=== PATIENT | female | born 1975 | race Caucasian/White ===

== ENCOUNTER 2018-12-14 04:26 | Emergency (ER) | payer MEDICAID ==
--- NOTE | 2018-12-14 04:50 | EDM.PDOC ---
ED HPI GENERAL MEDICAL PROBLEM - General Chief Complaint: Lower Extremity Injury/Pain Stated Complaint: FOOT INJURY Time Seen by Provider: 12/14/18 04:39 Source of Information: Reports: Patient, RN Notes Reviewed History Limitations: Reports: No Limitations - History of Present Illness INITIAL COMMENTS - FREE TEXT/NARRATIVE: The patient states that she fell down some stairs around midnight, injuring her right foot. She states that she landed on the foot wrong. She is otherwise uninjured. The patient's PCP is Dr. Katherine Butt. Right Foot Pain Score (Numeric/FACES): 7 - Related Data Allergies Allergy/AdvReac Type Severity Reaction Status Date / Time No Known Allergies Allergy Verified 12/14/18 04:35 Home Meds: Home Meds . [No Known Home Meds] 12/14/18 [History] Past Medical History Endocrine/Metabolic History: Reports: Obesity/BMI 30+ - Past Surgical History HEENT Surgical History: Reports: Oral Surgery (2 wisdom teeth extracted), Tonsillectomy Female Surgical History: Reports: Hysterectomy (partial), Other (See Below) ( Bladder suspension) Social & Family History - Family History Family Medical History: Noncontributory - Tobacco Use Smoking Status *Q: Never Smoker - Caffeine Use Caffeine Use: Reports: Coffee - Alcohol Use Alcohol Use History: No - Recreational Drug Use Recreational Drug Use: No - Living Situation & Occupation Living situation: Reports: Single, with Family (3 kids) Occupation: Unemployed Review of Systems - Review of Systems Review Of Systems: ROS reveals no pertinent complaints other than HPI. ED EXAM, GENERAL - Physical Exam Exam: See Below Exam Limited By: No Limitations General Appearance: Alert, WD/WN, No Apparent Distress Extremities: Other (No visible abnormality to the right foot, such as swelling, erythema, ecchymosis, or abrasion. The patient reports tenderness to the posterior foot at the base of the third and fourth MTPs, as well as to the mid- sole. Strong dorsalis pedis and posterior tibialis pulses.) Course - Vital Signs Last Recorded V/S: Last Vital Signs Temp 36.6 C 12/14/18 04:33 Pulse 93 12/14/18 04:33 Resp 18 12/14/18 04:33 BP 145/99 H 12/14/18 04:33 Pulse Ox 99 12/14/18 04:33 - Orders/Labs/Meds Meds: Medications Discontinued Medications Generic Name Dose Route Start Last Admin Trade Name Vernell PRN Reason Stop Dose Admin Ibuprofen 600 mg 12/14/18 05:40 12/14/18 05:45 Motrin PO 12/14/18 05:41 600 mg ONETIME ONE Administration - Re-Assessments/Exams Free Text/Narrative Re-Assessment/Exam: 12/14/18 06:38 4-view radiographs of the right foot appear to be normal. No fractures or dislocations identified. Formal read per the Radiologist pending. Departure - Departure Time of Disposition: 06:38 Disposition: Home, Self-Care 01 Condition: Good Clinical Impression: Right foot strain - Discharge Information *PRESCRIPTION DRUG MONITORING PROGRAM REVIEWED*: Not Applicable *COPY OF PRESCRIPTION DRUG MONITORING REPORT IN PATIENT MAGALIS: Not Applicable Instructions: Foot Sprain Referrals: Katherine Butt MD [Ordering Only Provider] - Forms: ED Department Discharge Additional Instructions: You were seen in the emergency room after falling down stairs and injuring your right foot. Workup in the ER included x-rays of your right foot, which returned normal. No broken bones or dislocations were seen. Based on your history, physical exam, and ER x-rays, you have most likely strained your right foot. We recommend that you take [id number] ibuprofen, 2-3 tablets (400-600 mg) every 8 hours, with food, as needed for discomfort. Ice and elevate your right foot is much as possible for the next couple of days. Wear soft-soled shoes whenever ambulating. Follow-up with your PCP, Dr. Katherine Butt, as needed. If any other problems, please do not hesitate to return to the ER.
[2018-12-14] MEDS ORDERED: Ibuprofen 600 MG Tab PO ONE (05:40)
--- NOTE | 2018-12-14 14:55 | CR ---
Right foot: Four views of the right foot were obtained. Comparison: No previous foot exam. Small plantar spur is seen. Calcification is noted within the distal Achilles tendon at the attachment to the calcaneus. No acute fracture, dislocation or other bony abnormality is seen. Impression: 1. Incidental calcaneal spurs and Achilles calcification. 2. Nothing acute is definitely appreciated on right foot exam. Diagnostic code #2
== END 2018-12-14 06:47 | disposition home or self-care (01) ==
LOC: JD.ED 04:26
DX: S96.911A Strain of unspecified muscle and tendon at ankle and foot level, right foot, initial encounter (principal); W10.9XXA Fall (on) (from) unspecified stairs and steps, initial encounter
CPT/HCPCS: 73630; 99283; A9270

== ENCOUNTER 2021-02-28 18:25 | Emergency (ER) | payer SELFPAY ==
[2021-02-28] MEDS ORDERED: Lidocaine 1% 10 ML MDV INJECT ONE (18:39)
--- NOTE | 2021-02-28 19:23 | EDM.PDOC ---
ED HPI GENERAL MEDICAL PROBLEM - General Chief Complaint: Laceration Stated Complaint: LEFT FINGER LAC Time Seen by Provider: 02/28/21 18:39 Source of Information: Reports: Patient History Limitations: Reports: No Limitations - History of Present Illness INITIAL COMMENTS - FREE TEXT/NARRATIVE: 38-year-old female presents emergency department today with complaints of a laceration to her left index finger. Patient states that just prior to arrival she was cutting some meat when she got distracted with one of her children and cut the tip of her left index finger. 2 and half centimeter laceration is noted to the pad. Bleeding is controlled. Left Hand Pain Score (Numeric/FACES): 4 - Related Data Allergies Allergy/AdvReac Type Severity Reaction Status Date / Time No Known Allergies Allergy Verified 02/28/21 18:36 Home Meds: Home Meds . [No Known Home Meds] 12/14/18 [History] Past Medical History Cardiovascular History: Reports: Arrhythmia Respiratory History: Reports: PE Gastrointestinal History: Reports: Inflammatory Bowel Disease Endocrine/Metabolic History: Reports: Obesity/BMI 30+ Oncologic (Cancer) History: Reports: Cervix - Past Surgical History HEENT Surgical History: Reports: Oral Surgery, Tonsillectomy Female Surgical History: Reports: Hysterectomy, Other (See Below) Social & Family History - Family History Family Medical History: No Pertinent Family History - Tobacco Use Tobacco Use Status *Q: Never Tobacco User Second Hand Smoke Exposure: No - Caffeine Use Caffeine Use: Reports: Soda - Recreational Drug Use Recreational Drug Use: No - Living Situation & Occupation Living situation: Reports: Single, with Family (3 kids) Occupation: Unemployed ED ROS GENERAL - Review of Systems Review Of Systems: Comprehensive ROS is negative, except as noted in HPI. ED EXAM, SKIN/RASH Exam: See Below Exam Limited By: No Limitations General Appearance: Alert, WD/WN, No Apparent Distress Ears: Normal External Exam, Hearing Grossly Normal Nose: Normal Inspection Throat/Mouth: Normal Inspection, Normal Lips, Normal Voice, No Airway Compromise Head: Atraumatic Neck: Normal Inspection, Supple Respiratory/Chest: No Respiratory Distress, No Accessory Muscle Use Cardiovascular: Normal Peripheral Pulses, Regular Rate, Rhythm GI/Abdominal: No Distention (Female) Exam: Deferred Rectal (Female) Exam: Deferred Back Exam: Normal Inspection Extremities: Normal Range of Motion, Non-Tender, Normal Capillary Refill. No: Normal Inspection (2 and half centimeter laceration noted to the distal aspect of the left index finger on the ventral side.) Neurological: Alert, Oriented, Normal Cognition Psychiatric: Normal Affect, Normal Mood Skin: Warm, Dry, Normal Color, No Rash. No: Intact (20 cm laceration noted to distal left index finger on the ventral side) Location, Skin: Upper Extremity, Left Characteristics: Linear Lymphatic: No Adenopathy ED SKIN PROCEDURES - Laceration/Wound Repair Left Digit - 2nd (Index) Appearance: Superficial Anesthetic Type: Local Local Anesthesia - Lidocaine (Xylocaine): 1% Plain Local Anesthetic Volume: 2cc Closed with: Sutures Lac/Wound length In cm: 2.5 Suture Size: 5-0 # of Sutures: 7 Suture Type: Nylon, Interrupted Course - Vital Signs Text/Narrative:: As stated, patient has a 2-1/2 cm laceration noted to the pad of her left index finger on the distal end. Bleeding is controlled. Patient will require suturing to repair the laceration. Last Recorded V/S: Last Vital Signs Temp 97.0 F 02/28/21 18:33 Pulse 83 02/28/21 18:33 Resp 18 02/28/21 18:33 BP 139/91 H 02/28/21 18:33 Pulse Ox 97 02/28/21 18:33 - Orders/Labs/Meds Meds: Medications Discontinued Medications Generic Name Dose Route Start Last Admin Trade Name Vernell PRN Reason Stop Dose Admin Lidocaine HCl 10 ml 02/28/21 18:39 02/28/21 18:46 Lidocaine 1% 10 Ml Mdv INJECT 02/28/21 18:40 10 ml ONETIME ONE Administration - Re-Assessments/Exams Free Text/Narrative Re-Assessment/Exam: 02/28/21 19:25 Left index finger was prepped and draped in sterile fashion and 7 sutures were placed. Patient tolerated procedure well. Departure - Departure Time of Disposition: 19:26 Disposition: Home, Self-Care 01 Condition: Good Clinical Impression: Laceration of left index finger Qualifiers: Encounter type: initial encounter Damage to nail status: without damage Foreign body presence: without foreign body Qualified Code(s): S61.211A - Laceration without foreign body of left index finger without damage to nail, initial encounter - Discharge Information Instructions: Laceration Care, Adult, [id number] Referrals: PCP,None [Primary Care Provider] - Additional Instructions: You were seen in the emergency department today with a laceration to your left index finger. Wound was cleansed and 7 sutures were placed. These can be removed in about 7 days. Leave the dressing on for 24 hours, then wash the area with warm soapy water twice daily. Use mild soap such as Kenny's baby shampoo or Dial soap. Pat the wound dry and then apply a thin film of bacitracin. May apply a bandage over the top. Watch for signs and symptoms of infection such as increased redness, warmth, swelling or pus. You may return to the emergency department to have the sutures removed or go to any of the clinics in [facility]. Sepsis Event Note (ED) - Evaluation Sepsis Screening Result: No Definite Risk - Focused Exam Vital Signs: Vital Signs Temp Pulse Resp BP Pulse Ox 02/28/21 18:33 97.0 F 83 18 139/91 H 97
== END 2021-02-28 20:02 | disposition home or self-care (01) ==
LOC: JD.ED 18:25
DX: S61.211A Laceration without foreign body of left index finger without damage to nail, initial encounter (principal); E66.9 Obesity, unspecified; Z68.39 Body mass index [BMI] 39.0-39.9, adult; W26.8XXA Contact with other sharp object(s), not elsewhere classified, initial encounter
CPT/HCPCS: 12001; 99282; 99282-25

== ENCOUNTER 2022-07-15 10:18 | Emergency (ER) | payer SELFPAY ==
[2022-07-15] MEDS ORDERED: Acetaminophen/oxyCODONE 325-5 MG Tab PO ONE (13:04)
== END 2022-07-15 14:50 | disposition home or self-care (01) ==
LOC: JD.ED 10:18
DX: S82.62XA Displaced fracture of lateral malleolus of left fibula, initial encounter for closed fracture (principal); E66.9 Obesity, unspecified; Z68.41 Body mass index [BMI] 40.0-44.9, adult; Z86.16 Personal history of COVID-19; W10.9XXA Fall (on) (from) unspecified stairs and steps, initial encounter
CPT/HCPCS: 29515; 73610; 99283; A9270

== ENCOUNTER 2024-11-15 23:27 | Emergency (ER) | payer SELFPAY | END 2024-11-16 00:31 | disposition home or self-care (01) | LOC: JD.ED 23:27 | DX: S93.602A Unspecified sprain of left foot, initial encounter (principal); E66.9 Obesity, unspecified; Z86.16 Personal history of COVID-19; Z90.710 Acquired absence of both cervix and uterus; Z68.41 Body mass index [BMI] 40.0-44.9, adult; X50.1XXA Overexertion from prolonged static or awkward postures, initial encounter | CPT/HCPCS: 73630-26-LT; 73630-LT; 99283 ==